=== PATIENT | female | born 1955 | race Caucasian/White ===

== ENCOUNTER 2018-01-16 05:38 | Observation (INO) ==
[2018-01-16] MEDS ORDERED: Heparin - SQ 10,000 UNITS/ML Vial SQ ONE (06:23)
[2018-01-16] MEDS ORDERED: Chlorhexidine Gluconate 2% 1 Pack (2 Cloths) TOPICAL SCH (06:30)
[2018-01-16] MEDS ORDERED: Metoprolol Tartrate 25 MG Tablet PO SCH (06:30)
[2018-01-16] MEDS ORDERED: Heparin - SQ 10,000 UNITS/ML Vial SQ SCH (06:30)
[2018-01-16] MEDS ORDERED: Famotidine PF Inj 20 MG/2 ML Vial ONE (06:55)
[2018-01-16] MEDS ORDERED: Sodium Chlor 0.9% Inj 500 ML IV.SIG SCH (07:00)
[2018-01-16] MEDS ORDERED: ceFAZolin 2 GM Premix Inj 2 GM/50 ML PIGGYBACK IV.SIG SCH (07:00)
[2018-01-16] MEDS: ceFAZolin 2 GM Premix Inj 2 GM/50 ML PIGGYBACK IV.SIG ONE ×2 (07:29→16:33)
[2018-01-16] MEDS: Lidocaine 1%/Epinephrine 1:100,000 Inj 30 ML Vial ONE ×2 (08:20→16:32)
[2018-01-16] MEDS ORDERED: Sugammadex Inj 200 MG/2 ML Vial IV.PUSH ONE (10:42)
[2018-01-16] MEDS ORDERED: LORazepam 0.5 MG Tablet PO PRN (11:08)
[2018-01-16] MEDS ORDERED: *Meperidine Inj 25 MG/ML Vial PERIprocedural Use ONLY ONE (11:30)
[2018-01-16] MEDS ORDERED: fentaNYL Citrate Inj 100 MCG/2 ML Ampul ONE (11:30)
[2018-01-16] MEDS ORDERED: Morphine Inj 4 MG/ML Vial ONE (11:31)
[2018-01-16] MEDS ORDERED: *morphine SULFATE 10 MG/ML PERIprocedure ONLY ONE (11:39)
[2018-01-16] MEDS: Ketorolac Inj 30 MG/ML (IVP) Vial IV.PUSH SCH ×2 (11:44→18:03)
[2018-01-16] MEDS ORDERED: Normosol-R pH 7.4 Inj 1,000 ML IV.CONT ONE (12:00)
[2018-01-16] MEDS ORDERED: Lidocaine PF 1% Inj 5 ML Syringe INFILTRATN ONE (12:00)
[2018-01-16] MEDS ORDERED: Labetalol HCl Inj 100 MG/20 ML Vial IV.CONT ONE (12:00)
[2018-01-16] MEDS: KCL 20 mEq/D5W/NaCl 0.45% Inj 1,000 ML IV.CONT SCH ×2 (12:04→20:32)
--- NOTE | 2018-01-16 12:40 | MP ---
cc: Marisela Daly MD, Christine Chang, Margaret M MD DATE OF OPERATION: PREOPERATIVE DIAGNOSIS: 1. Endometrial cancer. 2. Postmenopausal bleeding. POSTOPERATIVE DIAGNOSIS: 1. Endometrial cancer. 2. Postmenopausal bleeding. PROCEDURE: Robotic-assisted laparoscopic hysterectomy and bilateral salpingo-oophorectomy. SURGEON: Marisela Daly MD BAD CREDIT COLLECTOR: [place] assistant therapy aide. ANESTHESIA: General endotracheal anesthesia. ESTIMATED BLOOD LOSS: 100 mL IV FLUIDS: 1300 mL URINE OUTPUT: 600 mL HISTORY: A 62-year-old female with postmenopausal bleeding of perhaps 1 month's duration, sought evaluation. Ultrasound was obtained which showed a 15 mm endometrial stripe. 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 She was counseled regarding these findings and was in favor of surgical management. She is seen again in the preoperative holding area where the findings and plan of care are again discussed. Questions were asked and answered. She expressed good understanding and would like to move forward with surgical evaluation and management. FINDINGS: Uterine cavity sounded to approximately 8 cm and the peritoneal cavity, uterus, tubes, and ovaries grossly appeared normal and there were no appreciably enlarged pelvic or periaortic lymph nodes. There were no peritoneal implants. The liver, diaphragm edges were smooth. The omentum, large and small bowel and adjacent mesentery appeared normal in that there were no tumor implants. The uterus, once removed, was evaluated by pathologist and showed no overt evidence of residual cancer. No obvious invasion into the myometrium. PROCEDURE: She was taken to the operating room and placed in the dorsal lithotomy position after general endotracheal anesthesia was administered. A timeout was undertaken. She was identified by site recognition and hospital ID bracelet and the proposed procedure was reviewed and confirmed. She was carefully positioned in padded Steve stirrups. Arms were padded and secured to the sides. She was further secured to the operating table with egg crate padding and tape in a cross-chest over the shoulder fashion. All sites noted to be properly aligned with no malalignment or pressure points. She was prepped and draped in sterile fashion. The cervix was grasped. Uterine cavity sounded, cervix dilated and a large VCare manipulator inserted and secured in usual fashion. Dang catheter was placed in the bladder. She was returned to low lithotomy position. Change of sterile gloves was undertaken. We confirmed an orogastric tube was in the stomach on suction. With manual elevation of the abdominal wall and direct laparoscopic visualization, 5 mm cannula placed in the left upper quadrant. An atraumatic entry was confirmed and carbon dioxide gas was insufflated. Under laparoscopic visualization, a 12 mm cannula placed in midline above the umbilicus, an 8 mm cannula placed in the right upper quadrant and left lateral quadrant and the original 5 mm cannula exchanged for an 8 mm cannula. She was placed in Trendelenburg position. The anatomy was explored with findings as described above. Peritoneal washings were obtained for cytology. The small bowel was folded back on its mesenteric root and 3 Ray-Iman sponges were placed around the root of the small bowel mesentery. The robotic system was brought into the operative field and attached in the usual fashion. Monopolar scissors, fenestrated bipolar forceps and ProGrasp manipulators placed in arms 1, 2, and 3 respectively and I took my place at the surgeon's console. Right round ligament was isolated, cauterized and transected. The anterior and posterior leafs of the broad ligament were opened and the right ureter was identified. The right infundibulopelvic ligament was isolated. The intervening peritoneum was opened and the infundibulopelvic ligament was isolated to the level of the pelvic brim where it was cauterized and transected. Posterior peritoneum opened along the right side of the uterus and cervix and the right vesicouterine peritoneum was dissected off the lower uterine segment and cervix. The right uterine vessels were skeletonized, cauterized and transected as were the cardinal, paracervical and uterosacral ligaments. Left round ligament, isolated, cauterized and transected. The anterior and posterior leafs of the broad ligament were opened. The left ureter was identified. The left infundibulopelvic ligament was isolated. The intervening peritoneum was opened. The infundibulopelvic ligament was isolated to the level of the pelvic brim where it was cauterized and transected. Posterior peritoneum opened along the left side of the uterus and cervix and the left vesicouterine peritoneum was dissected off of the lower uterine segment and cervix. There were some inflammatory changes and scar changes between the bladder and the cervix, of uncertain etiology. The bladder flap was taken down below the level of the cervix. The left uterine vessels were skeletonized, cauterized and transected as were the cardinal, paracervical and uterosacral ligaments. Circumferential colpotomy was performed the cervix from the upper vagina. The specimen was withdrawn transvaginally which included uterus, cervix, tubes and ovaries, which were sent to pathology for preliminary evaluation. Instruments 1 and 3 exchanged for needle drivers as a 0 Vicryl suture was introduced. The vaginal cuff was closed starting at the left corner, full thickness closure including the posterior peritoneum and edge of the uterosacral ligament, tied via instrument tie. The closure was held on countertraction as a running continuous full thickness closure was carried across the vaginal apex to the contralateral corner where it was secured and tied. The needle was cut and removed. Pelvis was thoroughly irrigated. Small bleeders rendered hemostatic with bipolar cautery. To assess the integrity of the bladder, the bladder was filled with saline dyed with methylene blue. There were no areas of blue visible, certainly no extravasation of dye, but there was some irritation and disruption to some of the perivesical adipose tissue and small bleeders were rendered hemostatic with bipolar cautery. There was a good margin between the bladder edge and the vaginal cuff suture line. There was good peristalsis of ureters bilaterally and the bladder was drained. The pathology came back showing no evidence of invasive disease and it was felt that the morbidity associated with further dissection would exceed benefit. Therefore, it was felt that all reasonable surgical objectives had been completed. Hemostatic Kasey powder was placed across the vaginal cuff and across the bladder flap. The robotic instruments were removed. The robotic system was disengaged from the operative field. I reentered the bedside under sterile condition. Each of the 3 Ray-Iman sponges were removed. They were inspected and noted to be removed in their entirety. Preliminary counts were correct. The 12 mm fascial defect was closed with 0 Vicryl sutures interrupted. Using a fascia closure apparatus, they were tied securely, which rendered the fascia completely airtight and hemostatic. The remaining cannulas were withdrawn. Carbon dioxide gas was removed from the peritoneal cavity. 3-0 Vicryl subcutaneous and 3-0 Vicryl subcuticular was used to close thee incisions. Steri-Strips were placed over these incisions. She was returned to the dorsal lithotomy position. Pelvic exam confirmed that the cuff was well-supported, hemostatic. There was some superficial mucosal irritation along the left sidewall and at the left corner of the vagina without active bleeding and the remainder of the Kasey powder was placed in these areas for continued hemostasis. There were no remaining foreign objects in the vagina. Final counts were correct. She was returned to dorsal supine position and was pending reversal of anesthesia, when I left the operating room to precede her to the postanesthesia care unit. MD PEGGY Villanueva/MARIAH , 12:05 PM , 12:36 PM
[2018-01-16] MEDS ORDERED: *morphine SULFATE 4 MG/ML PERIprocedure ONLY ONE (12:41)
--- NOTE | 2018-01-16 14:52 | P.PNONC ---
Subjective Interval history: field examiner/onc post op note: patient is resting in bed no complaints denies pain, nausea or vomiting Dang cath to straight drain Objective Vital Signs/Intake & Output: Vital Signs 01/16/18 06:25 01/16/18 11:17 01/16/18 11:30 Temperature 98.7 F 97.2 F L Pulse Rate 72 92 H 91 H Respiratory Rate 18 14 19 Blood Pressure 125/65 107/55 L 111/56 L Pulse Oximetry 94 L 97 100 01/16/18 11:45 01/16/18 12:00 01/16/18 12:15 Temperature Pulse Rate 90 81 80 Respiratory Rate 15 14 10 L Blood Pressure 113/56 L 107/56 L 107/54 L Pulse Oximetry 96 97 98 01/16/18 12:30 01/16/18 12:45 01/16/18 13:06 Temperature 97.6 F 97.6 F Pulse Rate 81 69 60 Respiratory Rate 15 18 18 Blood Pressure 113/57 L 112/55 L 126/69 Pulse Oximetry 96 98 98 Intake & Output 01/15/18 01/16/18 01/16/18 18:59 06:59 18:59 Intake Total 1300 / 1300 Output Total 800 / 800 Balance 500 / 500 Weight 102.3 kg Intake: Anesthesia Amount 1300 / 1300 Output: Estimated Blood Loss 100 / 100 Urine Amount (Catheter) 700 / 700 Indwelling Urethral Catheter 700 / 700 Other: Date of Last Bowel Movement 01/16/18 Weight On Admission 102.3 kg Laboratory Results: Laboratory Results - last 24 hr 01/16/18 07:15 Blood Type O Positive Blood Type Recheck Required Antibody Screen Negative Medications: Active Medications Generic Name Dose Route Start Last Admin Trade Name Vicente PRN Reason Stop Dose Admin Chlorhexidine Gluconate 3 pack 01/16/18 06:30 01/16/18 07:10 Chlorhexidine 2% Cloth TOPICAL 01/19/18 06:23 3 pack TAILER OUT CHUNG Administration Heparin Sodium (Porcine) 5,000 units 01/16/18 06:30 01/16/18 07:10 Heparin Inj SQ 01/17/18 06:29 5,000 units TAILER OUT CHUNG Administration Lactated Ringer's 1,000 mls @ 30 mls/hr 01/16/18 06:30 01/16/18 07:09 Lr 1000 Ml Inj IV.SIG 01/19/18 06:23 30 mls/hr .Q24H CHUNG Administration Potassium Chloride/Dextrose/Sod Cl 1,000 mls @ 125 mls/hr 01/16/18 11:15 12:04 D5w/1/2ns + Kcl 20 Meq Inj IV.CONT 125 mls/hr .Q8H CHUNG Administration Ketorolac Tromethamine 15 mg 01/16/18 12:00 01/16/18 11:44 Toradol Inj IV.PUSH 01/17/18 06:01 15 mg Q6HR CHUNG Administration Metoprolol Tartrate 25 mg 01/16/18 06:30 01/16/18 07:10 Lopressor PO 01/19/18 06:23 Not Given TAILER OUT CHUNG Povidone Iodine 1 applicatio 01/16/18 06:30 01/16/18 07:09 Betadine 5% Antisepsis Kit EACH NARE 01/19/18 06:23 1 applicatio TAILER OUT CHUNG Administration Objective Remarks: GENERAL: Well-nourished, well-developed patient. SKIN: Warm and dry. HEAD: Normocephalic. EYES: No scleral icterus. No injection or drainage. NECK: Supple, trachea midline. CARDIOVASCULAR: Regular rate and rhythm without murmurs. RESPIRATORY: Breath sounds equal bilaterally. No accessory muscle use. GASTROINTESTINAL: Abdomen soft, non-tender, nondistended. with SS c/d/i EXTREMITIES: teds and scds MUSCULOSKELETAL: Adequate muscle tone. NEUROLOGICAL: No obvious focal deficit. Awake, alert, and oriented x3. PSYCHIATRIC: Appropriate mood and affect; insight and judgment normal. Assessment/Plan (1) Endometrial cancer Code(s): C54.1 - Malignant neoplasm of endometrium Status: Acute - Plan s/p RA lap hyst with BSO post op orders in chart Toradol and Percocet for pain ADAT Dang to straight drain, will be sent home with Dang cath OOB to chair anticipate discharge in the next 24 hours
[2018-01-17] MEDS: Ketorolac Inj 30 MG/ML (IVP) Vial IV.PUSH SCH ×2 (00:19→05:17)
[2018-01-17 06:17] LABS: Baso % (Auto) 0.1 % (0.0-2.0); Eos % (Auto) 0.2 % (0.0-4.0); Hematocrit 40.5 % (35.0-46.0); Hemoglobin 13.5 gm/dL (11.6-15.3); Lymph # (Auto) 1.3 th/mm3 (1.0-4.8); Lymph % (Auto) 14.6 % (9.0-44.0); Mean Corpuscular HGB Conc 33.2 % (32.0-36.0); Mean Corpuscular Hemoglobin 28.5 pg (27.0-34.0); Mean Corpuscular Volume 85.8 fL (80.0-100.0); Mean Platelet Volume 9.6 fL (7.0-11.0); Mono # (Auto) 0.5 th/mm3 (0.0-0.9); Mono % (Auto) 5.5 % (0.0-8.0); Neut # (Auto) 7.2 th/mm3 (1.8-7.7); Neut % (Auto) 79.6 % (16.0-70.0); Platelet Count 244 th/mm3 (150-450); Red Blood Count 4.72 mil/mm3 (4.00-5.30); Red Cell Distribution Width 14.7 % (11.6-17.2)
[2018-01-17 06:42] LABS: Calcium 8.7 mg/dL (8.5-10.1); Carbon Dioxide 23.7 meq/L (21.0-32.0); Potassium 4.3 meq/L (3.5-5.1)
--- NOTE | 2018-01-17 07:13 | MD ---
cc: Marisela Daly MD, Christine C MD Chang,Jessica Crockett MD DATE OF DISCHARGE: 01/17/2018 PROCEDURE: 01/16/2018, robotic-assisted laparoscopic hysterectomy, bilateral salpingo-oophorectomy. DIAGNOSIS: Endometrial cancer. HOSPITAL COURSE: She did well in the early postoperative period, hemodynamically stable, tolerating oral intake. Dang catheter is to remain indwelling due to some dissection adjacent to the bladder. Ins and outs 2950/1500. LABORATORY DATA: H and H 13/40. Electrolytes pending. EXAM: VITAL SIGNS: Afebrile. Vital signs Stable. LUNGS: Clear. CARDIOVASCULAR: Regular rate and rhythm. ABDOMEN: Soft. Incisions clean and dry. GYNECOLOGIC: No bleeding. EXTREMITIES: Nontender. ASSESSMENT: Postoperative day 1, doing well in the early postop period. Findings at the time of surgery and preliminary pathology discussed. Activities and restrictions reviewed. Questions were asked and answered. She expressed a good understanding. The rationale for continued Dang catheterization for approximately 1 week is explained and she is to take once daily ciprofloxacin antibiotic for infection prophylaxis. PLAN: Anticipate the patient will meet criteria for discharge to home. She is to contact our office to schedule a followup within 7-10 days for early postop check and Dang catheter removal. She is to resume her prior medications. She will have a prescription for Percocet, as well as a prescription for ciprofloxacin. Our office number is again made available should she have any questions or problems between now and the time of scheduled followup. Marisela Daly MD KLM/DL , 06:53 AM , 07:12 AM
[2018-01-17] MEDS ORDERED: Non-Formulary Drug (Lisinopril-Hydrochlorothiazide [Lisinopril-Hydrochlorothiazide] 1 TAB) PO SCH (09:00)
[2018-01-17] MEDS ORDERED: hydroCHLOROthiazide 25 MG Tablet PO SCH (09:00)
[2018-01-17] MEDS ORDERED: Lisinopril 20 MG Tablet PO SCH (09:00)
== END 2018-01-17 10:57 | disposition home or self-care (01) ==
LOC: HCIN 05:38 → HSDI 05:38 → HOR 05:38 → HCIN 14:00
PROVIDERS: ADMIT Obstetrics & Gynecology Gynecologic Oncology; ATTEND Obstetrics & Gynecology Gynecologic Oncology